=== PATIENT | male | born 1990 | race African-American/Black ===

== ENCOUNTER 2016-08-14 12:04 | Emergency (ER) | payer SELFPAY ==
[~2016-08-14] VITALS: Ht 177.8 cm; Wt 77.1 kg
[~2016-08-14 12:04] MED LIST: AMOX1TAB61 PO
[2016-08-14 12:11] VITALS: BP 163/101
--- NOTE | 2016-08-14 12:29 | RAD ---
Indication: Trauma to the right hand with pain in the fourth and fifth phalanges. Time of exam 12:19 PM 3 views of the right hand were obtained. There is a fracture through the distal aspect of the proximal phalanx of the fourth finger. No other fractures are seen. No significant displacement or angulation is seen. The metacarpals are intact. Carpus is unremarkable. Impression: Acute transversely oriented fracture through the distal aspect of the proximal phalanx, fourth finger.
[2016-08-14] MEDS ORDERED: NAPROXEN 500 MG TABLET PO STA (12:32)
[2016-08-14] MEDS ORDERED: HYDR-971 PO ×2 (12:41→12:45)
[2016-08-14] MEDS ORDERED: NAPR500T8 PO (12:41)
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
[2016-08-14] MEDS ORDERED: HYDROcodone/APAP 5/325MG 1 TAB TABLET PO ONE (12:45)
== END 2016-08-14 12:54 | disposition home or self-care (01) ==
LOC: ER 12:04
DX: S62.644A Nondisplaced fracture of proximal phalanx of right ring finger, initial encounter for closed fracture (principal); S60.221A Contusion of right hand, initial encounter; F12.10 Cannabis abuse, uncomplicated; Z88.1 Allergy status to other antibiotic agents; W23.0XXA Caught, crushed, jammed, or pinched between moving objects, initial encounter; Y93.89 Activity, other specified; Y99.8 Other external cause status; Y92.89 Other specified places as the place of occurrence of the external cause
CPT/HCPCS: 29130; 73130; 99284-25

== ENCOUNTER 2016-09-20 15:31 | Emergency (ER) | payer SELFPAY ==
[~2016-09-20] VITALS: Ht 177.8 cm; Wt 79.4 kg
[~2016-09-20 15:31] MED LIST changes: +HYDR-971 PO; +NAPR500T8 PO
[2016-09-20 16:00] VITALS: BP 127/71
--- NOTE | 2016-09-20 16:05 | RAD ---
Right ring finger, 3 views, 09/20/2016: History: Injury There is a fracture of the distal aspect of the proximal phalanx of the ring finger. The fracture is slightly comminuted. There is mild dorsal displacement and angulation of the major distal fracture fragment. There is mild associated soft tissue swelling. The middle and distal phalanges are unremarkable. IMPRESSION: Acute fracture of the distal end of the proximal phalanx of the ring finger.
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
== END 2016-09-20 16:20 | disposition home or self-care (01) ==
LOC: ER 15:31
DX: S62.61 Displaced fracture of proximal phalanx of finger (principal); F12.10 Cannabis abuse, uncomplicated; Z76.0 Encounter for issue of repeat prescription; Z88.1 Allergy status to other antibiotic agents; X58.XXXD Exposure to other specified factors, subsequent encounter
CPT/HCPCS: 73140; 99284

== ENCOUNTER 2018-12-21 18:36 | Emergency (ER) | payer SELFPAY ==
[~2018-12-21] VITALS: Ht 177.8 cm; Wt 79.4 kg
[~2018-12-21 18:36] MED LIST changes: +HYDR-3164 PO; -HYDR-971 PO
[2018-12-21 18:48] VITALS: BP 145/94
[2018-12-21] MEDS ORDERED: CLIN300C8 PO (19:19)
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
[2018-12-21] MEDS ORDERED: DIPHTH,PERTUSS(ACELL),TET TOX 0.5 ML DISP.SYRIN. VAX IM ONE (19:30)
== END 2018-12-21 19:34 | disposition home or self-care (01) ==
LOC: ER 18:36
DX: L02.413 Cutaneous abscess of right upper limb (principal); Z88.1 Allergy status to other antibiotic agents; Z88.8 Allergy status to other drugs, medicaments and biological substances
CPT/HCPCS: 90471; 90715; 99283

== ENCOUNTER 2019-06-03 18:19 | Emergency (ER) | payer SELFPAY ==
[~2019-06-03] VITALS: Ht 177.8 cm; Wt 77.3 kg
[~2019-06-03 18:19] MED LIST changes: +CLIN300C8 PO
[2019-06-03] MEDS ORDERED: HYDROcodone/APAP 5/325MG 1 TAB TABLET PO ONE (20:30)
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
--- NOTE | 2019-06-03 23:35 | RAD ---
STUDY: 1. CT head without contrast 2. CT maxillofacial without contrast 3. CT cervical spine without contrast INDICATION: Fall. COMPARISON: CT head 06/14/2015 TECHNIQUE: Axial CT imaging of the head, maxillofacial structures and cervical spine performed without the use of intravenous contrast. Sagittal and coronal reformats were obtained. One or more of the following individualized dose reduction techniques were utilized for this examination: 1. Automated exposure control 2. Adjustment of the mA and/or kV according to patient size 3. Use of iterative reconstruction technique. FINDINGS: CT HEAD: No acute intracranial hemorrhage. No mass effect, midline shift or hydrocephalus. Lazo-white matter differentiation is maintained. Unremarkable calvarium. CT MAXILLOFACIAL: Downward bowing of the inferior orbital floor on the right, image 14 series 5, with the potential space created by this buckling filled with fat. There is no pathologic descent of the adjacent inferior rectus muscle and the extraocular muscles are symmetric in size. No layering fluid seen within the paranasal sinuses. No retrobulbar hematoma. Symmetric optic nerves. The temporomandibular joints are normally aligned. Dental caries involving the most posterior maxillary molar on the right as well as involving the second most posterior maxillary molar on the left. Unerupted far posterior maxillary and mandibular molars on the left. No large contusion. No abnormality involving the visualized deep spaces of the neck. CT CERVICAL SPINE: No acute fracture or traumatic malalignment. No paraspinous soft tissue sequela of trauma. Unremarkable thyroid and visualized lungs. IMPRESSION: CT HEAD: 1. No acute intracranial abnormality. CT MAXILLOFACIAL: 1. Downward bowing of the inferior orbital floor on the right with the potential space created by the bowing filled with fat. There are no ancillary findings to suggest this defect to be acute and this is favored the sequela of prior orbital injury. Recommend correlation with patient history. Collectively, no acute facial fracture is identified. 2. Scattered dental caries, as above. CT CERVICAL SPINE: 1. No acute fracture or traumatic malalignment. Electronically signed by: RON SANCHEZ MD (06/03/2019 11:32 PM) [id number]
[2019-06-04] MEDS ORDERED: ORPH100T PO (00:09)
[2019-06-04] MEDS ORDERED: HYDR-3164 PO (00:09)
[2019-06-04 00:26] VITALS: BP 106/63
--- NOTE | 2019-06-04 01:17 | RAD ---
Five-view lumbar spine dated 06/03/2019. No comparison available. CLINICAL INDICATION: Pain. Recent fall. FINDINGS: AP, lateral, bilateral oblique and coned-down views of lumbosacral junction obtained. There are 6 nonrib-bearing vertebral levels. Vertebral body and disc heights are maintained. Sagittal alignment is anatomic. Mild hypertrophic change of the lower lumbar apophyseal joints. No pars defects on the oblique views. IMPRESSION: No acute radiographic abnormality. Electronically signed by: Pete Martin MD (06/04/2019 1:14 AM) [id number]
--- NOTE | 2019-06-04 01:20 | RAD ---
3 views of the right hand dated 06/03/2019. Comparison made to 08/14/2016. CLINICAL INDICATION: Pain. FINDINGS: 3 views the right hand show a healed angulated fracture of the fifth metacarpal midshaft. Osseous structures otherwise intact. No significant soft tissue swelling. No new fracture identified. IMPRESSION: 1. No acute radiographic abnormality. 2. Old healed angulated fracture of the fifth metacarpal midshaft Electronically signed by: Pete Martin MD (06/04/2019 1:17 AM) [id number]
== END 2019-06-04 00:35 | disposition home or self-care (01) ==
LOC: ER 18:26
DX: S62.326A Displaced fracture of shaft of fifth metacarpal bone, right hand, initial encounter for closed fracture (principal); M54.5 Low back pain; M54.2 Cervicalgia; R51 Headache; L53.9 Erythematous condition, unspecified; F12.90 Cannabis use, unspecified, uncomplicated; F17.200 Nicotine dependence, unspecified, uncomplicated; W18.39XA Other fall on same level, initial encounter; Y93.72 Activity, wrestling; Y92.89 Other specified places as the place of occurrence of the external cause; Y99.8 Other external cause status
CPT/HCPCS: 29125; 70450; 70486; 72110; 72125; 73130; 99285

== ENCOUNTER 2019-08-05 00:21 | Emergency (ER) | payer SELFPAY ==
[~2019-08-05] VITALS: Ht 177.8 cm; Wt 79.5 kg
[~2019-08-05 00:21] MED LIST changes: +ORPH100T PO
[2019-08-05 00:25] VITALS: BP 110/82
--- NOTE | 2019-08-05 02:37 | RAD ---
Study: CR RIBS RIGHT AND PA CHEST Indication: Trauma. Comparison: None. Findings: Within normal limits size of the cardiomediastinal silhouette. No layering effusion. No lobar infiltrate or pneumothorax. Probable subtle nondisplaced fracture at the anterolateral aspect of the right 10th rib. No rib fracture appreciated elsewhere. Mild sigmoid thoracolumbar curvature. Impression: Suspected nondisplaced fracture at the anterolateral right 10th rib. No pneumothorax. Electronically signed by: RON SANCHEZ MD (08/05/2019 2:34 AM) [id number]
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
== END 2019-08-05 02:35 | disposition home or self-care (01) ==
LOC: ER 00:21
DX: S20.211A Contusion of right front wall of thorax, initial encounter (principal); F17.200 Nicotine dependence, unspecified, uncomplicated; F12.90 Cannabis use, unspecified, uncomplicated; X58.XXXA Exposure to other specified factors, initial encounter; Y93.89 Activity, other specified; Y92.89 Other specified places as the place of occurrence of the external cause; Y99.8 Other external cause status
CPT/HCPCS: 71101; 99283